=== PATIENT | female | born 1990 | race Two or more races ===

== ENCOUNTER 2021-02-18 20:57 | Emergency (ER) | payer SELFPAY ==
[~2021-02-18] VITALS: Ht 160 cm; Wt 89.3 kg
--- NOTE | 2021-02-18 21:47 | NUR ---
BIB [facility] FROM WORK. PT ATE [facility] FOR DINNER AT 1800, PT IS ALLERGIC TO [facility]. PT C/O NAUSEA, HIVES. PICK UP ATTENDANT [facility]: PIV 20G RAC, 50MG BENADRYL, 4MG ZOFRAN, 500ML NS. PER [facility], PT HAS BEEN TALKING ON HER PHONE, NO RESP DISTRESS UPON [facility] ARRIVAL ON SCENE. NO RESP DISTRESS NOTED. PT MOSTLY SLEEPING FROM BENADRYL, RESP EVEN AND UNLABORED. PT CONNECTED TO MONITORING. ERMD HAS BEEN AT BEDSIDE FOR ASSESSMENT. PER [facility] CONTINUE IVF UNTIL 1L NS COMPLETE. CALL LIGHT IN REACH.
[2021-02-18] MEDS ORDERED: FAMOTIDINE 20 MG/2 ML ONE (22:16)
--- NOTE | 2021-02-18 22:23 | NUR ---
[facility] ADMIN PER OCT. PT RESTING COMFORTABLY ON GURNEY. RESP EVEN AND UNLABORED. CALL LIGHT IN REACH.
[2021-02-18] MEDS ORDERED: SODIUM CHLORIDE 0.9% 1,000ML IVBOLUS ONE (22:30)
[2021-02-18] MEDS ORDERED: FAMOTIDINE 20 MG/2 ML IVPush ONE (22:30)
--- NOTE | 2021-02-18 22:38 | NUR ---
PT STATES SHE IS FEELING BETTER. HIVED ON UPPER CHEST AND UPPER EXTREMITIES ARE BETTER. CHART UP FOR RECHECK.
--- NOTE | 2021-02-18 22:52 | NUR ---
REPORT FROM ANA LILIA CHOU
[2021-02-18 23:14] VITALS: BP 106/56
--- NOTE | 2021-02-18 23:52 | NUR ---
Patient given discharge instructions and they have confirmed that they understand the instructions. Patient ambulatory with steady gait. NAD, all questions answered appropriately, denies additional needs at this time. No personal belongings left in room after discharge.
== END 2021-02-18 23:53 | disposition home or self-care (01) ==
LOC: ED 22:53
DX: L50.0 Allergic urticaria (principal); T78.1XXA Other adverse food reactions, not elsewhere classified, initial encounter; R11.2 Nausea with vomiting, unspecified; R07.89 Other chest pain
CPT/HCPCS: 96374; 99283; J7512; 96372